=== PATIENT | male | born 1980 | race African-American/Black ===

== ENCOUNTER 2021-03-05 06:26 | Emergency (ER) | payer SELFPAY ==
[~2021-03-05] VITALS: Ht 180.3 cm; Wt 97.7 kg
[2021-03-05 06:29] VITALS: BP 144/79; Ht 180.3 cm; Wt 97.7 kg
[2021-03-05] MEDS ORDERED: CEPHALEXIN500 M1 PO (06:37)
[2021-03-05] MEDS ORDERED: HYDROCODON-ACE1 EAC7 PO (06:37)
[2021-03-05] MEDS ORDERED: ORALONE5 GM TOPICAL (06:37)
== END 2021-03-05 06:45 | disposition home or self-care (01) ==
LOC: D.ER 06:26
DX: K08.89 Other specified disorders of teeth and supporting structures (principal); S02.5XXA Fracture of tooth (traumatic), initial encounter for closed fracture; X58.XXXA Exposure to other specified factors, initial encounter